=== PATIENT | male | born 1985 | race Native Hawaiian/Other Pacific Islander ===

== ENCOUNTER 2018-02-10 00:34 | Emergency (ER) | payer BC ==
[~2018-02-10] VITALS: Ht 163.8 cm; Wt 90.7 kg
[2018-02-10] MEDS ORDERED: OMEPRAZOLE40 MG PO (00:49)
[2018-02-10 02:13] LABS: PLATELET COUNT 273 K/uL (142-355)
[2018-02-10 02:19] LABS: POTASSIUM 4.1 mmol/L (3.6-5.2)
[2018-02-10 04:35] VITALS: BP 148/70; TEMP 98.5
== END 2018-02-10 04:43 | disposition home or self-care (01) ==
LOC: ED 00:34
PROVIDERS: Specialist
DX: R13.10 Dysphagia, unspecified (principal)
CPT/HCPCS: 36415; 80053; 85027; 85651; 99283

== ENCOUNTER 2018-05-24 19:32 | Emergency (ER) | payer BC ==
[~2018-05-24] VITALS: Ht 162.6 cm; Wt 83.9 kg
[~2018-05-24 19:32] MED LIST: OMEPRAZOLE40 MG PO
[2018-05-24 20:37] LABS: PLATELET COUNT 259 K/uL (142-355)
[2018-05-24 20:44] LABS: POTASSIUM 3.5 mmol/L (3.6-5.2); SODIUM 141 mmol/L (136-145)
[2018-05-24 21:45] VITALS: BP 150/75; TEMP 98.4
== END 2018-05-24 21:45 | disposition home or self-care (01) ==
LOC: ED 19:32
PROVIDERS: Family Medicine
DX: R07.89 Other chest pain (principal); K21.9 Gastro-esophageal reflux disease without esophagitis; M94.0 Chondrocostal junction syndrome [Tietze]; R00.1 Bradycardia, unspecified
CPT/HCPCS: 80053; 81000; 84484; 85027; 93005; 96374; 99284; J3490

== ENCOUNTER 2021-07-29 17:24 | Emergency (ER) | payer OTHER ==
[~2021-07-29] VITALS: Ht 162.6 cm; Wt 83.9 kg
[2021-07-29 17:35] VITALS: TEMP 97.1
[2021-07-29 18:28] VITALS: BP 128/74
== END 2021-07-29 18:43 | disposition home or self-care (01) ==
LOC: ED 17:24
PROC: 0HQGXZZ Repair Left Hand Skin, External Approach (ICD-10-PCS; principal; 2021-07-29)
DX: S61.217A Laceration without foreign body of left little finger without damage to nail, initial encounter (principal); W45.8XXA Other foreign body or object entering through skin, initial encounter; Y92.89 Other specified places as the place of occurrence of the external cause
CPT/HCPCS: 99283; J2001